=== PATIENT | female | born 1980 | race Caucasian/White ===

== ENCOUNTER 2017-05-24 22:48 | Inpatient (IN) | payer MEDICAID ==
[~2017-05-24] VITALS: Ht 147.3 cm; Wt 62.3 kg
[~2017-05-24 22:48] MED LIST: DOCU1CAP39 PO; IBUP800T23 PO
[2017-05-24 22:57] VITALS: BP 159/80; PULSE 98; RESP 20; TEMP 98.1; O2SAT 98
[2017-05-24] MEDS ORDERED: ONDANSETRON ODT 4 MG TAB PO ONE (23:15)
[2017-05-24] MEDS ORDERED: MORPHINE SULFATE 4 MG/ML INJ IM ONE (23:15)
--- NOTE | 2017-05-24 23:15 | PD ---
HPI Chief Complaint: Musculoskeletal Complaint Time Seen by Provider: 23:13 Travel History International Travel<30 days: No Contact w/Intl Traveler<30days: No Traveled to known affect area: No History of Present Illness HPI 36-year-old female not months presents to emergency department for evaluation of a slip and fall. The patient injured her left knee in the fall. She allegedly had slipped backwards on the wet floor in the kitchen bending her left leg underneath her. She denies any back pain. No head or neck injury. No abdominal pain. No contractions. No leakage of fluid or vaginal bleeding. Patient states the pain is severe. She is unable to ambulate due to pain. [facility] Past Medical History Medical History: Denies Significant Hx Immunizations Current: Yes Tetanus Vaccination: < 5 Years Influenza Vaccination: No ?: Past Surgical History Surgical History: No Previous Surgery Social History Alcohol Use: No Tobacco Use: No Substance Use: No Allergies-Medications (Allergen,Severity, Reaction): Coded Allergies: No Known Allergies (Unverified , 04/22/13) Reported Meds & Prescriptions Reported Meds & Active Scripts Active Reported Ferrous Sulfate 325 Mg (65 Mg Iron) Tablet 325 Mg PO DAILY Review of Systems Except as stated in HPI: all other systems reviewed are Neg Physical Exam Narrative GENERAL: Well-developed, well-nourished in mild distress secondary to pain. Nontoxic appearing. HEAD: Normocephalic, atraumatic. EYES: Pupils equal round and reactive. Extraocular motions intact. No scleral icterus. No injection or drainage. ENT: Nose clear. Throat without erythema, tonsillar hypertrophy or exudate. Uvula midline. Airway patent. NECK: Trachea midline. Supple, nontender, moves head freely. No central bony tenderness or spasm. CARDIOVASCULAR: Regular rate and rhythm without murmurs, gallops, or rubs. RESPIRATORY: Clear to auscultation. Breath sounds equal bilaterally. No wheezes , rales, or rhonchi. GASTROINTESTINAL: Abdomen soft, non-tender, gravid. No guarding. EXTREMITIES: No clubbing, cyanosis. Examination of the left lower extremity reveals a joint effusion in the knee. She complains of severe pain diffusely in the knee with just always swollen amount of movement. Unable to assess ligament stability due to pain. No pain in the hip, ankle, foot. She has intact sensation with good distal pulses. The right lower extremity as well as upper extremities are unremarkable for acute bony tenderness or deformity. BACK: Nontender without deformity. No flank tenderness. NEUROLOGICAL: Awake, alert and oriented x 3 .Cranial nerves grossly intact. Motor and sensory grossly within normal limits. Normal speech. Data Data Last Documented VS Vital Signs Date Time Temp Pulse Resp B/P (MAP) Pulse Ox O2 Delivery O2 Flow Rate FiO2 05/24/17 23:36 20 05/24/17 22:57 98.1 98 159/80 (106) 98 Room Air Orders Orders Knee, Complete (4vws) (05/24/17 23:08) Ice/Cold Pack (05/24/17 23:08) Morphine Inj (Morphine Inj) (05/24/17 23:15) Ondansetron Odt (Zofran Odt) (05/24/17 23:15) [facility] Medical Decision Making Medical Screen Exam Complete: Yes Emergency Medical Condition: Yes Medical Record Reviewed: Yes Interpretation(s) Last 24 hours Impressions Knee X-Ray 05/24/17 [id number] Signed Impressions: Service Date/Time: Wednesday, May 24, 2017 23:22 - CONCLUSION: 1. Abnormal sclerosis and bony destruction in the proximal tibia with soft tissue mass and possible pathologic fracture. Differential diagnosis includes osteosarcoma and chronic low grade infection with pathologic fracture. Recommend MRI left knee. Findings discussed with Dr. Segundo. Yang Quispe MD Differential Diagnosis MDM: High Differential diagnoses: Fracture, sprain, strain, dislocation, contusion, neurovascular injury Narrative Course Patient's given morphine 4 mg IM and Zofran 4 mg by mouth pain. X-ray of the left knee has been ordered. Icepack applied. Patient's place in a knee immobilizer. The case has been discussed with Dr. Quispe the radiologist. He recommends the patient be admitted and get MRI of the knee with possible biopsy to further delineate the pathological fracture of the proximal tibia. The case has been discussed with Dr. Lucas the OB hospitalist who has agreed to see the patient and admit. He is aware that an MRI of the knee will need to be ordered and consult with orthopedics. Diagnosis Primary Impression: left pathological tibial plateau fracture Additional Impression: Qualified Codes: Z34.90 - Encounter for supervision of normal , unspecified, unspecified trimester Condition: Stable Yang Segundo May 24, 2017 23:15
--- NOTE | 2017-05-24 23:42 | RADRPT ---
EXAM DATE/TIME: 05/24/2017 23:22 [facility] COMPARISON: No previous studies available for comparison. INDICATIONS : Knee pain from injury at work, fell on left knee. MEDICAL HISTORY : None. SURGICAL HISTORY : None. ENCOUNTER: Initial ACUITY: 1 day PAIN SCORE: 0/10 LOCATION: Left knee FINDINGS: There is moth-eaten bone destruction involving the proximal tibia with sclerosis and soft tissue mass . There may be a pathologic fracture through the tibial plateau. There is abnormal widening of the me dial joint. There is a joint effusion. Distal femur are intact. CONCLUSION: 1. Abnormal sclerosis and bony destruction in the proximal tibia with soft tissue mass and possible p athologic fracture. Differential diagnosis includes osteosarcoma and chronic low grade infection with pathologic fracture. Recommend MRI left knee. Findings discussed with Dr. Segundo. Yang Quispe MD on May 24, 2017 at 23:36 Board Certified Radiologist. This report was verified electronically.
[2017-05-24] MEDS ORDERED: FERR325T8 PO (23:49)
[2017-05-25] VITALS (11 sets, daily range): BP systolic 91–123; BP diastolic 50–61; PULSE 82–110; RESP 16–18; TEMP 97.6–98.8
[2017-05-25] MEDS ORDERED: cefTRIAXone INJ 1,000 MG in SODIUM CHLORIDE 0.9% INJ 100 ML IV SCH (01:00)
[2017-05-25] MEDS ORDERED: ONDANSETRON HCL 4 MG/2 ML VIAL IV PRN (01:15)
[2017-05-25] MEDS ORDERED: ACETAMINOPHEN 325 MG TAB PO PRN (01:15)
[2017-05-25] MEDS ORDERED: SODIUM CHLORIDE 0.9% FLUSH 10 ML FLUSH IV FLUSH PRN (01:15)
[2017-05-25] MEDS ORDERED: ZOLPIDEM TARTRATE 5 MG TAB PO PRN (01:15)
[2017-05-25] MEDS ORDERED: hydrOXYzine HCL 50 MG TAB PO PRN (01:15)
[2017-05-25] MEDS ORDERED: HYDROmorphone HCL PF 2 MG/ML VIAL IV PUSH PRN (01:15)
--- NOTE | 2017-05-25 01:28 | HHI.HP ---
HPI Chief Complaint Left knee injury from a fall at home Date Seen: May 25, 2017 Time Seen: 01:16 Travel History International Travel<30 Days: No Contact w/Intl Traveler<30Days: No Known Affected Area: No History of Present Illness HPI Patient is 36-year-old G 4P3 approximately 39 - 40 weeks with no care who presents to the emergency room after having fallen at home injuring her left knee. Patient fell backwards with her knee flexed up underneath her. In the emergency room and she was evaluated knee was noted to be markedly swollen and x-ray shows a fracture of the left knee and what appears to be a "moth-eaten" appearance to that the tibia bone superiorly that would go along with pathologic fracture and a lytic bone lesions that could be related to osteosarcoma versus osteomyelitis or some other infectious etiology, the emergency room is recommended to admission and after discussion with radiology MRI and possible biopsy of the tibial head. From obstetric standpoint patient is doing well the baby's heart tones within normal limits is no contractions the baby feels to be term size on Justino maneuvers and we'll plan to get an obstetric ultrasound in the morning Weeks Gestation: 39 Para: 3 : 4 History Past Medical History Narrative Medical Patient's a problem with his left knee for over 6 months she was having pain with that when she states twisted her knee getting off of a boat dock and the knee swelled up and was painful she went to a doctor in [facility], x-rays were done and the doctor told her she needed to go see a specialist about her knee. Her knee began to improve and feel better so she never went to the specialist. She's done nothing about her knee until today when she reinjured it and is now she's here Obstetric History Obstetric History 3 vaginal deliveries Social History Alcohol Use: No Tobacco Use: No Substance Abuse: No Allergies-Medications (Allergen,Severity, Reaction): Coded Allergies: No Known Allergies (Unverified , 04/22/13) Home Meds Reported Medications Ferrous Sulfate (Ferrous Sulfate) 325 Mg (65 Mg Iron) Tablet, 325 MG PO DAILY for Nutritional Supplement, #30 TAB 0 Refills 05/24/17 Discontinued Reported Medications Docusate Sodium (Colace 100 Mg Cap) 100 Mg Cap, 100 MG PO BID for CONSTIPATION, #30 CAP 04/24/13 Ibuprofen (Ibuprofen) 800 Mg Tab, 800 MG PO Q8 for PAIN, #30 TAB 04/24/13 Review of Systems General / Constitutional: No: Fever, Weight Gain, Chills, Other Eyes: No: Diploplia, Blurred Vision, Visual changes, Pain, Photophobia HENT: No: Headaches, Vertigo, Lightheadedness Cardiovascular: No: Irregular Rhythm, Chest Pain or Discomfort, Palpitations, Tachycardia, Syncope, Varicosities, Edema, Cyanosis Respiratory: No: Cough, Short of Breath, Other Gastrointestinal: No: Nausea, Vomiting, Diarrhea Genitourinary: No: Decreased Urinary Output, Oliguria Musculoskeletal: Limited ROM, Edema, Pain, No: Weakness, Cramping Skin: No Rash, No Itching, No Dryness, No Lumps, No Change in Pigmentation, No Change in Nails, No Alopecia, No Lesions Neurologic: No: Weakness, Dizziness, Syncope, Focal Abnormalities, Coordination Problem, Headache, Slurred Speech, Seizures Psychiatric: No: Depression, Suicidal Ideations, Homicidal Ideation Endocrine: No: Heat Intolerance, Cold Intolerance, Polydipsia, Polyuria, Other Physical Exam Vital Signs Date Time Temp Pulse Resp B/P (MAP) Pulse Ox O2 Delivery O2 Flow Rate FiO2 05/24/17 23:36 20 05/24/17 22:57 98.1 98 20 159/80 (106) 98 Room Air Narrative GENERAL: Well-nourished, well-developed patient. SKIN: Warm and dry. Diffuse rash over most of her body small separate darkish lesions that are pruritic HEAD: Normocephalic and atraumatic. EYES: No scleral icterus. No injection or drainage. ENT: No nasal drainage noted. Mucous membranes pink. Airway patent. NECK: Supple, trachea midline. No JVD. CARDIOVASCULAR: Regular rate and rhythm without murmurs, gallops, or rubs. RESPIRATORY: Breath sounds equal bilaterally. No accessory muscle use. BREASTS: Bilateral exam showed no masses , no retractions, no nipple discharge. ABDOMEN/GI: Abdomen soft, non-tender, bowel sounds present, no rebound, no guarding Gravid to [term-] weeks size Fundal Height: [-37] GENITOURINARY: External Genitalia: intact and normal in appearance BUS glands: [-] Cervix: [-] Deferred Presentation: [vtx-] Membranes: [intact ] Uterine Contractions: [none-] FHT's: Category: [1-] Baseline: [-133] Reactive: [-yes] Variability: [mod-] Decels: [-none] EXTREMITIES: No cyanosis , left knee is very swollen very tender no discoloration BACK: Nontender without obvious deformity. No CVA tenderness. NEUROLOGICAL: Awake and alert. Motor and sensory grossly within normal limits. . Normal speech. Caprini VTE Risk Assessment Caprini VTE Risk Assessment: Mod/High Risk (score >= 2) Caprini Risk Assessment Model Point Value = 1 Point Value = 2 Point Value = 3 Point Value = 5 Age 41-60 Minor surgery BMI > 25 kg/m2 Swollen legs Varicose veins or History of unexplained or recurrent spontaneous Oral contraceptives or hormone replacement Sepsis (< 1 month) Serious lung disease, including pneumonia (< 1 month) Abnormal pulmonary function Acute myocardial infarction Congestive heart failure (< 1 month) History of inflammatory bowel disease Medical patient at bed rest Age 61-74 Arthroscopic surgery Major open surgery (> 45 min) Laparoscopic surgery (> 45 min) Malignancy Confined to bed (> 72 hours) Immobilizing plaster cast Central venous access Age >= 75 History of VTE Family history of VTE Factor V Leiden Prothrombin [id number] Lupus anticoagulant Anticardiolipin antibodies Elevated serum homocysteine Heparin-induced thrombocytopenia Other congenital or acquired thrombophilia Stroke (< 1 month) Elective arthroplasty Hip, pelvis, or leg fracture Acute spinal cord injury (< 1 month) Prophylaxis Regimen Total Risk Factor Score Risk Level Prophylaxis Regimen 0-1 Low Early ambulation 2 Moderate Order ONE of the following: *Sequential Compression Device (SCD) *Heparin 5000 units SQ BID 3-4 Higher Order ONE of the following medications: *Heparin 5000 units SQ TID *Enoxaparin/Lovenox 40 mg SQ daily (WT < 150 kg, CrCl > 30 mL/min) *Enoxaparin/Lovenox 30 mg SQ daily (WT < 150 kg, CrCl > 10-29 mL/min) *Enoxaparin/Lovenox 30 mg SQ BID (WT < 150 kg, CrCl > 30 mL/min) AND/OR *Sequential Compression Device (SCD) 5 or more Highest Order ONE of the following medications: *Heparin 5000 units SQ TID (Preferred with Epidurals) *Enoxaparin/Lovenox 40 mg SQ daily (WT < 150 kg, CrCl > 30 mL/min) *Enoxaparin/Lovenox 30 mg SQ daily (WT < 150 kg, CrCl > 10-29 mL/min) *Enoxaparin/Lovenox 30 mg SQ BID (WT < 150 kg, CrCl > 30 mL/min) AND *Sequential Compression Device (SCD) Data Data Orders Orders Knee, Complete (4vws) (05/24/17 23:08) Ice/Cold Pack (05/24/17 23:08) Morphine Inj (Morphine Inj) (05/24/17 23:15) Ondansetron Odt (Zofran Odt) (05/24/17 23:15) Ob Poc Ultrasound (05/25/17 ) Ob (2e) Additional Admit Info (05/25/17 01:02) Admit To Inpatient (05/25/17 ) Diet Regular Basic (05/25/17 Breakfast) Vital Signs (Adult) ILDA.Y2T-ENNDA AWAKE (05/25/17 01:03) Heart ILDA.QSHIFT (05/25/17 01:03) Activity Bed Rest (05/25/17 01:03) Complete Blood Count With Diff (05/25/17 01:03) Urinalysis - C+S If Indicated (05/25/17 01:03) Lactated Ringer's 1000 Ml Inj (Lr 1000 M (05/25/17 01:03) Acetaminophen (Tylenol) (05/25/17 01:15) Sodium Chloride 0.9% Flush (Ns Flush) (05/25/17 09:00) Sodium Chloride 0.9% Flush (Ns Flush) (05/25/17 01:15) Zolpidem (Ambien) (05/25/17 01:15) Ondansetron Inj (Zofran Inj) (05/25/17 01:15) Us Ob Limited (05/25/17 08:00) Ob/Psych Drug Screen, Urine (05/25/17 01:03) Hold Clot (05/25/17 01:03) Consult Perinatology (05/25/17 ) Ceftriaxone Inj (Rocephin Inj) (05/25/17 01:00) Hiv Antibody Screen (05/25/17 01:09) Urinary Catheter Management ILDA.Q8H (05/25/17 01:10) Hydromorphone Pf Inj (Dilaudid Pf Inj) (05/25/17 01:15) Consult Orthopedic (05/25/17 ) Comprehensive Metabolic Panel (05/25/17 01:14) Hydroxyzine Hcl (Atarax) (05/25/17 01:15) Labs see radiology report on left knee Assessment/Plan Assessment and Plan 36-year-old at term with no care approximately 40 weeks gestation the patient relates she's her calculation she's due in mid May however she is not seen OB doctor or had an ultrasound this , she only speaks Malay but her sinus here translates for her. She has a fractured left knee from a fall today and x-ray that needed tonight shows pathologic fracture with moth eaten changes in the tibial head consistent with possible osteosarcoma versus infectious etiology in radiology recommends admission orthopedic consultation MRI possible biopsy of that knee. From an obstetric standpoint she stable plan an ultrasound in the morning and consultation if they're available will draw lab collect GBS Javier Lucas II, MD May 25, 2017 01:28
[2017-05-25] MEDS: LACTATED RINGER'S 1000 ML INJ 1,000 ML IV SCH ×2 (01:56→12:13)
[2017-05-25 01:59] LABS: AUTOMATED NEUTROPHIL # 9.2 TH/MM3 (1.8-7.7); BASOPHIL % 0.2 % (0.0-2.0); EOSINOPHIL % 0.2 % (0.0-4.0); HEMATOCRIT 27.8 % (35.0-46.0); HEMO FLAGS DIFF FINAL; LYMPH % 13.5 % (9.0-44.0); LYMPHOCYTE # 1.5 TH/MM3 (1.0-4.8); MEAN CELL VOLUME 80.3 FL (80.0-100.0); MEAN CORPUSCULAR HEMOGLOBIN 26.3 PG (27.0-34.0); MEAN CORPUSCULAR HGB CONC 32.8 % (32.0-36.0); MONO % 5.6 % (0.0-8.0); NEUT % 80.5 % (16.0-70.0); PLATELET COUNT 463 TH/MM3 (150-450); RED BLOOD COUNT 3.47 MIL/MM3 (4.00-5.30); RED CELL DISTRIBUTION WIDTH 15.4 % (11.6-17.2); WHITE BLOOD COUNT 11.5 TH/MM3 (4.0-11.0)
[2017-05-25 02:18] LABS: ALT (GPT) 12 U/L (10-53); ANION GAP 8 MEQ/L (5-15); AST (GOT) 12 U/L (15-37); BICARBONATE 22.9 MEQ/L (21.0-32.0); CHLORIDE 104 MEQ/L (98-107); GLOMERULAR FILTRATION RATE 138 ML/MIN (>89); POTASSIUM 4.2 MEQ/L (3.5-5.1); SODIUM (NA) 135 MEQ/L (136-145)
[2017-05-25 02:24] LABS: ALKALINE PHOSPHATASE 242 U/L (45-117); BLOOD UREA NITROGEN 7 MG/DL (7-18); TOTAL BILIRUBIN ADULT 0.4 MG/DL (0.2-1.0)
[2017-05-25 02:47] LABS: BACTERIA, URINE MOD /hpf; BLOOD, URINE TRACE (NEG); COMMENT (UR) CATH-CULTURE IND; CULTURE IF INDICATED CATH CULTURE IND; GLUCOSE,URINE NEG (NEG); KETONE, URINE 10 mg/dL (NEG); MUCUS URINE FEW /lpf (OCC); NITRITE,URINE POS (NEG); RENAL EPITHELIAL CELLS <1 /hpf; SQUAMOUS EPITHELIAL CELL URINE 5 /hpf (0-5); URINE COLOR YELLOW (YELLW/STRAW)
[2017-05-25 06:02] LABS: RUBELLA IGG ANTIBODY 37.5 IU/mL (10.0-500.0); RUBELLA STATUS IMMUNE (IMMUNE)
[2017-05-25] MEDS ORDERED: SODIUM CHLORIDE 0.9% FLUSH 10 ML FLUSH IV FLUSH SCH (09:00)
--- NOTE | 2017-05-25 10:33 | RADRPT ---
EXAM DATE/TIME: 05/25/2017 09:21 [facility] COMPARISON: No previous studies available for comparison. INDICATIONS : Trauma. Pain and swelling left knee. MEDICAL HISTORY : . SURGICAL HISTORY : None. ENCOUNTER: Initial ACUITY: 4-6 months PAIN SCORE: 9/10 LOCATION: Left knee TECHNIQUE: Multiplanar, multisequence MRI examination was performed without contrast. The patient is 39 weeks pr egnant and MRI contrast would not have aided a definitive diagnosis. FINDINGS: There is complete marrow replacement involving the proximal tibia. It is a mixed signal intensity les ion with some areas of lower signal suggesting sclerosis however there is complete loss of the normal marrow fat. There is clinical destruction along the lateral tibial metaphysis and involving the ent conor tibial spine. It involves through the epiphysis and the tibial tuberosity and an expansile destr uctive pattern. There is some surrounding soft tissue particularly anteriorly. The popliteus muscle posterior to the tibia is expanded and very edematous. The majority of the corti johana breakthrough is in the anterior and lateral components but there is obvious concern for popliteus muscular involvement CRUCIATE LIGAMENTS: ACL and PCL are intact. MENISCI: Medial and lateral menisci are intact. COLLATERAL LIGAMENTS: MCL and LCL complexes are intact. BONE/CARTILAGE: Articular cartilage signal is within normal limits. MISCELLANEOUS: Moderate joint effusion with some debris in the suprapatellar bursa. The patella tendon is anteriorly displaced due to expansile lesion within the tibial tuberosity. CONCLUSION: Aggressive appearing lesion in the proximal tibia with diffuse marrow replacement and bony cortical d isruption. Extends and anteriorly displaces the tibial tuberosity with multiple areas of progressive tumor growth pattern. Osteosarcoma is the primary consideration. Dedifferentiated chondrosarcoma als o should be considered. Misha Flores MD on May 25, 2017 at 10:18 Board Certified Radiologist. This report was verified electronically.
--- NOTE | 2017-05-25 10:40 | RADRPT ---
EXAM DATE/TIME: 05/25/2017 09:21 [facility] COMPARISON: No previous studies available for comparison. INDICATIONS : Edema. Swelling and pain left knee. MEDICAL HISTORY : . SURGICAL HISTORY : None. ENCOUNTER: Initial ACUITY: 4-6 months PAIN SCORE: 9/10 LOCATION: Left knee TECHNIQUE: Multiplanar multisequence MRI examination of the lower leg was performed without contrast. FINDINGS: BONE/CARTILAGE: Proximal 7.4 cm of the tibial marrow has been completely replaced. There is breakthrough involving th e lateral tibial metaphysis and anterior cortex involving the tibial spine. MUSCLES/TENDONS: There is extensive soft tissue involvement surrounding the metaphysis. There is abnormal signal with in the tibialis anterior muscle, the flexor hallucis longus muscle and the popliteus muscle. MISCELLANEOUS: Neurovascular structures are within normal limits. Moderate joint effusion CONCLUSION: Aggressive marrow replacing lesion of the proximal 7.4 cm of the tibia. There is cortical breakthroug h anteriorly and laterally with extensive surrounding soft tissue edema including at least involvemen t of 3 muscular groups. Osteosarcoma is a primary consideration. There is tumor involvement of the ti bial tuberosity and the patellar tendon insertion. Misha Flores MD on May 25, 2017 at 10:36 Board Certified Radiologist. This report was verified electronically.
--- NOTE | 2017-05-25 15:53 | MB ---
cc: NOEL QUIROZ DATE OF CONSULTATION 05/25/2017 REASON FOR CONSULTATION Left knee proximal tibia pathologic fracture. HISTORY The patient is a 36-year-old female who is approximately 39-40 weeks who apparently had no care and had an injury to the left knee about six months ago. She twisted her knee getting off of a boat dock, the knee swelled, became painful. She says she saw a physician in [place], x-rays were taken and according to the notes in the chart, it says that the patient was told she needs to go see a specialist about her knee, although the patient told me that she had a fracture. Note that history was obtained from both reviewing the chart and also talking to the patient with a preschool director who was from the family. The patient apparently says the knee started to feel better and she did not see a specialist. She has worsening pain about the left knee. She presented to the emergency room. She had swelling about the knee. X-rays were taken showing a moth-eaten appearance to the proximal tibia. The patient was admitted to the hospital. After I reviewed the x-rays. I ordered a stat MRI of the proximal tibia and of the knee which had just been completed. The patient denies any history of cancer. She denies any pain in any other body areas other than typical pain from a . PAST MEDICAL HISTORY As above. SOCIAL HISTORY The patient does not smoke or drink alcohol. ALLERGIES See the chart. FAMILY HISTORY Noncontributory. REVIEW OF SYSTEMS Total review of systems is negative except as noted in the history of present illness. PHYSICAL EXAMINATION The patient's temperature is 97.6, pulse is 100, respirations 16, blood pressure 103/60. She is awake, alert and oriented x3. She has normal insight, affect and judgment. She is Danish-speaking and we discussed her case with a preschool director. The patient appears to be well-nourished in no acute distress. HEAD: Atraumatic. NECK: Supple. Oropharynx is moist. EYES, EARS, NOSE AND THROAT: Extraocular muscles are intact. BACK: The back shows no CVA tenderness. She still has evidence of . EXTREMITIES: Examination of the left knee, canvas knee splint that was applied was removed. She has quite a bit of swelling in the proximal tibia. Skin is intact with no fungating changes to the skin. There is no skin breakdown. There appears to be a large joint effusion versus a mass in the suprapatellar pouch. The knee has very limited range of motion. There appears to be normal alignment. There is no instability to varus/valgus stress testing. I did not appreciate a mass down by the lower portion of the tibia. The patient does not have lymphadenopathy noted up by the groin region, although it was difficult to tell given the . She moves the toes well and she has 2+ dorsalis pedis pulse in the left foot. LABORATORY STUDIES Reviewed and shows a white cell count of 11.5, hematocrit 27.8, platelets of 467. Chemistries creatinine is 0.51. IMAGING STUDIES At the time that I spoke to the patient, I had just reviewed the x-rays. I reviewed the MRI after talking to the patient. I did review the images and the reports for both. I agree with interpretation showing essentially significant moth-eaten mixed with sclerotic changes about the proximal tibia which on the lateral view appears to extend out anterior to the tibial tubercle. I do not see changes in the distal femur or the patella. The changes encompassed the diaphysis and are diffuse and non-sclerotic in nature. 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 DECISION-MAKING This is a very complicated situation for this patient. 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 Typically, I would recommend a full workup such as CT of the chest, abdomen and pelvis along with whole body bone scan to look for further characteristics if there are metastasis and also look for any other source of primary cancer. However, given her clinical situation, I feel that a primary bone cancer is very likely given the fact that it is broken through the bone this becomes a very complicated situation. I do not recommend a biopsy of this by the undersigned or by invasive radiology. Typically this type of problem should be biopsied by a physician who is prepared to do full treatment for this problem. Besides her needing further workup as described above may require surgical management such as limb salvage reconstruction if possible or even potentially amputation which could be [id number] given the fact that there may be some tumor cells within the suprapatellar pouch as well. This could be a limb threatening and life-threatening situation for the patient. This is much more complicated due to the fact that she is late term in her . We did talk to the physician taking care of this patient. They are going to be talking to maternal medicine physicians to try to date the at this point. I generally recommend transfer to another facility such as [facility] in [place] to have an end user support specialist in oncology to evaluated and manage the patient. We will need to see if we can get in touch with them to see if they want to us to do any of the other radiologic work up here as described above or if there is something that they may want to defer to have done at their own institution. Further management of this is still being developed and will be discussed with the patient. MD LEANDER Frey/BREN /10:57 AM /3:30 PM
--- NOTE | 2017-05-25 16:08 | PD.OB.ANTE ---
Subjective Diagnosis: (1) 38 weeks gestation of (2) with orthopedic problem (3) Insufficient care in third trimester Interval History Patient reports good movement. Denies contractions/LOF/VB. Reports pain in knee unchanged. Objective Vital Signs Vital Signs Date Time Temp Pulse Resp B/P (MAP) Pulse Ox O2 Delivery O2 Flow Rate FiO2 05/25/17 12:09 98.6 05/25/17 12:09 16 05/25/17 12:08 85 123/61 (81) 05/25/17 07:39 100 103/60 (74) 05/25/17 07:39 98.0 16 05/25/17 06:00 97.6 16 05/25/17 05:58 96 109/59 (76) 05/25/17 05:56 86 91/50 (64) 05/25/17 04:08 18 05/25/17 03:00 16 05/25/17 02:38 82 108/59 (75) 05/25/17 00:30 18 05/24/17 23:36 20 05/24/17 22:57 98.1 98 20 159/80 (106) 98 Room Air Lab & Micro Results Test 05/25/17 01:30 05/25/17 02:20 White Blood Count 11.5 TH/MM3 Red Blood Count 3.47 MIL/MM3 Hemoglobin 9.1 GM/DL Hematocrit 27.8 % Mean Corpuscular Volume 80.3 FL Mean Corpuscular Hemoglobin 26.3 PG Mean Corpuscular Hemoglobin Concent 32.8 % Red Cell Distribution Width 15.4 % Platelet Count 463 TH/MM3 Mean Platelet Volume 7.8 FL Neutrophils (%) (Auto) 80.5 % Lymphocytes (%) (Auto) 13.5 % Monocytes (%) (Auto) 5.6 % Eosinophils (%) (Auto) 0.2 % Basophils (%) (Auto) 0.2 % Neutrophils # (Auto) 9.2 TH/MM3 Lymphocytes # (Auto) 1.5 TH/MM3 Monocytes # (Auto) 0.6 TH/MM3 Eosinophils # (Auto) 0.0 TH/MM3 Basophils # (Auto) 0.0 TH/MM3 CBC Comment DIFF FINAL Differential Comment Urine Color YELLOW Urine Turbidity HAZY Urine pH 6.0 Urine Specific [place] 1.017 Urine Protein 30 mg/dL Urine Glucose (UA) NEG mg/dL Urine Ketones 10 mg/dL Urine Occult Blood TRACE Urine Nitrite POS Urine Bilirubin NEG Urine Urobilinogen 2.0 MG/DL Urine Leukocyte Esterase LARGE Urine RBC 4 /hpf Urine WBC 8 /hpf Urine Squamous Epithelial Cells 5 /hpf Urine Renal Epithelial Cells <1 /hpf Urine Amorphous Sediment RARE Urine Bacteria MOD /hpf Urine Mucus FEW /lpf Microscopic Urinalysis Comment CATH-CULTURE IND Blood Urea Nitrogen 7 MG/DL Creatinine 0.51 MG/DL Random Glucose 98 MG/DL Total Protein 7.3 GM/DL Albumin 2.2 GM/DL Calcium Level 8.3 MG/DL Alkaline Phosphatase 242 U/L Aspartate Amino Transf (AST/SGOT) 12 U/L Alanine Aminotransferase (ALT/SGPT) 12 U/L Total Bilirubin 0.4 MG/DL Sodium Level 135 MEQ/L Potassium Level 4.2 MEQ/L Chloride Level 104 MEQ/L Carbon Dioxide Level 22.9 MEQ/L Anion Gap 8 MEQ/L Estimat Glomerular Filtration Rate 138 ML/MIN Urine Opiates Screen POS Urine Barbiturates Screen NEG Urine Amphetamines Screen NEG Urine Benzodiazepines Screen NEG Urine Cocaine Screen NEG Urine Cannabinoids Screen NEG Rapid Plasma Reagin NON-REACTIVE Rubella Immunity Screen IMMUNE Rubella Antibody, Quantitative 37.5 IU/mL Date/Time Source Procedure Growth Status 05/25/17 02:20 Genital Genital Region Group B Streptococcus Screen Pending Received 05/25/17 01:30 Urine Catheterized Urine Urine Culture Pending Received Physical Exam GENERAL: Well-nourished, well-developed patient. CARDIOVASCULAR: Regular rate and rhythm without murmurs, gallops, or rubs. RESPIRATORY: Breath sounds equal bilaterally. No accessory muscle use. ABDOMEN/GI: Abdomen soft, non-tender. Fundus: [-] GENITOURINARY: External Genitalia: intact and normal in appearance Cervix: [-] Dilatation: [-] Effacement: [-] Station: [-] Presentation: [-] Membranes: [-] Uterine Contractions: [no contractions] FHT's: Category: [1] Baseline: [150s] Reactive: [yes] Variability: [moderate] Decels: [none] EXTREMITIES: No cyanosis or edema, non-tender, without signs of DVT. Assessment and Plan Assessment and Plan at 38w 6d, no care, admitted after fall and now with concerns for orthopedic carcinoma. Per discussion with Dr. Mak, orthopedics and Dr. Corbett, [facility] patient will be transferred to [facility] in [place] for continued orthopedic evaluation and work up. OB care to be assumed by Dr. Cuate Palomares. Plan d/w with patient via translation services. R/B/A reviewed, all questions answered. D/w patient that questions regarding assessment/plan for orthopedic problems to be directed to Dr. Mak. Patient stated understanding. Kathy Amado MD May 25, 2017 16:08
--- NOTE | 2017-05-29 21:48 | MD ---
cc: MARK JIMÉNEZ MD ADMISSION DATE: 05/25/2017 DISCHARGE DATE: 05/25/2017 DATE OF 1980 HISTORY This is a 36-year-old 4, para 3 Portuguese speaking only patient who presented to the emergency room status post a fall at home injuring her left knee. The patient has had no care thus far in this . In the emergency department the patient was evaluated and per x-rays shown to have a fracture of the left knee with concerns for osteosarcoma versus osteomyelitis or another infectious etiology. Orthopedics consultation was obtained with Dr. Adrián Mak who ordered an MRI of the knee which showed sclerotic changes, moth eaten appearance with attention to the tibial tubercle. After discussion with Dr. Mak he was concerned for a primary bone sarcoma based on the imaging. He recommended further evaluation and workup including biopsy to be performed at another facility. The patient had an obstetrical ultrasound per KORI which agreed with an JUANA that the patient stated,which dated her at 38 weeks and 6 days. Patient status was discussed with Dr. Corbett, regarding recommendations for transfer to have further orthopedic evaluation and care. Recommendations are for the patient to be delivered at that same facility. Recommendations for transfer were discussed with the patient via translation services. Explained to patient that Dr. Mak would discuss any other questions regarding orthopedic issues. Arrangements were made for the patient to be transferred to [facility] in [place] with orthopedic care to be assumed by Dr. Pope and obstetrical care to be assumed by Dr. Palomares. All information was relayed to the patient via translation services and the patient stated understanding that she would be transferred to [facility] in [place] and care would be continued there. Mark Jiménez MD JR/KK /4:26 PM /9:22 PM [facility]in[facility]
[2017-05-30 13:14] LABS: BATH SALTS (MDPV) UR NEG (NEG); ECSTASY (MDMA) UR NEG (NEG); GABAPENTIN UR NEG (NEG); HEROIN (6-ACETYLMORPHINE) UR NEG (NEG); K2 SPICE UR NEG (NEG); OBMETHADONE UR NEG (NEG); PHENCYCLIDINE URINE NEG (NEG)
[2017-05-30 13:16] LABS: HYDROMORPHONE U POS (NEG)
== END 2017-05-25 19:05 | disposition short-term general hospital (02) | DRG 781 ==
LOC: HOBED 22:48 → H2EA 05-25 01:02 → OBSVTOIN 05-25 01:09
PROVIDERS: ADMIT Obstetrics & Gynecology Maternal & Fetal Medicine; ATTEND Obstetrics & Gynecology Maternal & Fetal Medicine
PROC: 0T9B70Z Drainage of Bladder with Drainage Device, Via Natural or Artificial Opening (ICD-10-PCS; principal; 2017-05-25)
DX: O9A.113 Malignant neoplasm complicating pregnancy, third trimester (principal); C40.22 Malignant neoplasm of long bones of left lower limb; M84.462A Pathological fracture, left tibia, initial encounter for fracture; O09.33 Supervision of pregnancy with insufficient antenatal care, third trimester; W01.0XXA Fall on same level from slipping, tripping and stumbling without subsequent striking against object, initial encounter; Y92.009 Unspecified place in unspecified non-institutional (private) residence as the place of occurrence of the external cause; Z3A.39 39 weeks gestation of pregnancy
CPT/HCPCS: 73564; 73718; 73721; 76805; 80053; 80074; 80307; 81001; 85025; 86592; 86762; 86900; 86901; 87077; 87081; 87086; 87150; 87186; 87389; 96372; A0431-QM-HH; A0436-QM-HH; G0481; J0696; J1170; J2270; J7120

== ENCOUNTER 2017-08-04 10:01 | Emergency (ER) | payer MEDICAID ==
[~2017-08-04] VITALS: Ht 149.9 cm; Wt 60.0 kg
[~2017-08-04 10:01] MED LIST changes: -DOCU1CAP39 PO; +FERR325T18 PO; -IBUP800T23 PO
[2017-08-04 10:03] VITALS: BP 130/75; PULSE 122; RESP 22; TEMP 100.2; O2SAT 99
[2017-08-04] MEDS ORDERED: PROC10TA PO (10:21)
[2017-08-04] MEDS ORDERED: DEXA4TAB PO (10:21)
[2017-08-04] MEDS ORDERED: ZOFR8TAB PO (10:21)
[2017-08-04 10:22] VITALS: BP 139/79; PULSE 107; RESP 16; TEMP 99.8; O2SAT 98
[2017-08-04] MEDS ORDERED: SODIUM CHLOR 0.9% 1000 ML INJ 800 ML IV ONE (10:23)
[2017-08-04] MEDS ORDERED: SODIUM CHLOR 0.9% 1000 ML INJ 1,000 ML IV ONE (10:23)
--- NOTE | 2017-08-04 10:29 | PD ---
HPI . Fever Chief Complaint: Fever Time Seen by Provider: 10:23 Travel History International Travel<30 days: No Contact w/Intl Traveler<30days: No Traveled to known affect area: No History of Present Illness HPI This is a Khmer-speaking only patient who presents to us today for fever. History is obtained using her son as insurance professional. Onset of fever was today. Maximum temperature is 101.9. She has had some very mild rhinorrhea and a mild cough. Otherwise, no obvious etiology for the fever. 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 This was diagnosed when she suffered a pathological fracture of her left knee. She was seen here at that time but was subsequently transferred to [facility] for both delivery and for treatment of the newly diagnosed osteosarcoma. She is only obtaining chemotherapy. She has not had surgery. Her last chemotherapy was July 25 and . PFSH Past Medical History Implanted Vascular Access Dvce: Yes Immunizations Current: Yes ?: Not Past Surgical History Other Surgery: Yes (LEFT KNEE BIOPSY, RIGHT CHEST PORT) Social History Alcohol Use: No Tobacco Use: No Substance Use: No Allergies-Medications (Allergen,Severity, Reaction): Coded Allergies: No Known Allergies (Unverified , 04/22/13) Reported Meds & Prescriptions Reported Meds & Active Scripts Active Reported Prochlorperazine Maleate 10 Mg Tab 10 Mg PO Q6H PRN Zofran (Ondansetron HCl) 8 Mg Tab 8 Mg PO TID PRN Dexamethasone 4 Mg Tab 8 Mg PO DIRECTED Review of Systems Except as stated in HPI: all other systems reviewed are Neg General / Constitutional: Positive: Fever HENT: Positive: Rhinorrhea Respiratory: Positive: Cough Gastrointestinal: No: Nausea, Vomiting, Diarrhea, Abdominal Pain Genitourinary: No: Urgency, Frequency, Dysuria Skin: No Rash, No Change in Pigmentation, No Lesions Physical Exam Narrative GENERAL: Awake and alert and in no acute distress. SKIN: warm/dry. HEAD: Normocephalic. EYES: Pupils equal and round. No scleral icterus. No injection or drainage. ENT: No nasal bleeding or discharge. Mucous membranes pink and moist. NECK: Trachea midline. Full range of motion without pain. No cervical lymphadenopathy. CARDIOVASCULAR: Sinus tachycardia. Heart sounds are normal. RESPIRATORY: No accessory muscle use. Clear to auscultation. Breath sounds equal bilaterally. GASTROINTESTINAL: Abdomen soft. Nontender. Bowel sounds present. Nondistended. MUSCULOSKELETAL: No obvious deformities. NEUROLOGICAL: Awake and alert. No obvious cranial nerve deficits. Motor grossly within normal limits. Normal speech. PSYCHIATRIC: Appropriate mood and affect; insight and judgment normal. Data Data Last Documented VS Vital Signs Date Time Temp Pulse Resp B/P (MAP) Pulse Ox O2 Delivery O2 Flow Rate FiO2 08/04/17 12:12 99.3 08/04/17 11:00 90 17 99 Room Air Orders Orders Sepsis Workup Initiated (08/04/17 ) Complete Blood Count With Diff (08/04/17 10:23) Comprehensive Metabolic Panel (08/04/17 10:23) Lactic Acid Sepsis Protocol (08/04/17 10:23) Urinalysis - C+S If Indicated (08/04/17 10:23) Influenzae A/B Antigen (08/04/17 10:23) Blood Culture (08/04/17 10:23) Chest, Single Ap (08/04/17 10:23) Ecg Monitoring (08/04/17 10:23) Iv Access Insert/Monitor (08/04/17 10:23) Oximetry (08/04/17 10:23) Acetaminophen (Tylenol) (08/04/17 10:30) Sodium Chlor 0.9% 1000 Ml Inj (Ns 1000 M (08/04/17 10:23) Sodium Chlor 0.9% 1000 Ml Inj (Ns 1000 M (08/04/17 10:23) Urine Culture (08/04/17 11:38) Cefepime Inj (Maxipime Inj) (08/04/17 12:30) Labs Laboratory Tests Test 08/04/17 10:36 08/04/17 11:38 White Blood Count 2.3 TH/MM3 Red Blood Count 3.59 MIL/MM3 Hemoglobin 10.0 GM/DL Hematocrit 28.7 % Mean Corpuscular Volume 80.1 FL Mean Corpuscular Hemoglobin 27.9 PG Mean Corpuscular Hemoglobin Concent 34.8 % Red Cell Distribution Width 19.2 % Platelet Count 174 TH/MM3 Mean Platelet Volume 8.8 FL CBC Comment AUTO DIFF Differential Total Cells Counted 100 Neutrophils % (Manual) 8 % Band Neutrophils % 1 % Lymphocytes % 81 % Monocytes % 9 % Eosinophils % 1 % Neutrophils # (Manual) 0.2 TH/MM3 Differential Comment FINAL DIFF MANUAL Platelet Estimate NORMAL Platelet Morphology Comment NORMAL Blood Urea Nitrogen 11 MG/DL Creatinine 0.69 MG/DL Random Glucose 117 MG/DL Total Protein 8.1 GM/DL Albumin 2.9 GM/DL Calcium Level 8.3 MG/DL Alkaline Phosphatase 206 U/L Aspartate Amino Transf (AST/SGOT) 58 U/L Alanine Aminotransferase (ALT/SGPT) 129 U/L Total Bilirubin 0.5 MG/DL Sodium Level 130 MEQ/L Potassium Level 4.0 MEQ/L Chloride Level 98 MEQ/L Carbon Dioxide Level 23.5 MEQ/L Anion Gap 9 MEQ/L Estimat Glomerular Filtration Rate 97 ML/MIN Lactic Acid Level 1.5 mmol/L Urine Color LIGHT-YELLOW Urine Turbidity CLEAR Urine pH 7.0 Urine Specific [place] 1.003 Urine Protein NEG mg/dL Urine Glucose (UA) NEG mg/dL Urine Ketones NEG mg/dL Urine Occult Blood NEG Urine Nitrite NEG Urine Bilirubin NEG Urine Urobilinogen LESS THAN 2.0 MG/DL Urine Leukocyte Esterase NEG Urine RBC LESS THAN 1 /hpf Urine WBC 1 /hpf Urine Bacteria MOD /hpf Microscopic Urinalysis Comment CATH-CULTURE IND MDM Medical Decision Making Medical Screen Exam Complete: Yes Emergency Medical Condition: Yes Medical Record Reviewed: Yes (please see the HPI for the review of records.) Differential Diagnosis Differential diagnosis of fever includes but is not limited to viral illness, strep throat, otitis media, pneumonia, sepsis, UTI Narrative Course This is a patient on chemotherapy who presents to us for fever. Septic workup has been initiated. I have ordered IV fluids and Tylenol. Antibiotics have not yet been ordered. Last Impressions Chest X-Ray 08/04/17 1023 Signed Impressions: Service Date/Time: July 10:40 - CONCLUSION: No infiltrates seen. Justin Coleman MD flu screen neg. LA 1.5 CBC & BMP Diagram 08/04/17 10:36 Total Protein 8.1, Albumin 2.9 L, Calcium Level 8.3 L, Alkaline Phosphatase 206 H, Aspartate Amino Transf (AST/SGOT) 58 H, Alanine Aminotransferase (ALT/SGPT) 129 H, Total Bilirubin 0.5 ANC 0.2 UA has moderate bacteria but no other evidence of infection. Cefepime 2 g IV has been ordered empirically. Critical Care Narrative Aggregate critical care time was 45 minutes. Time to perform other separately billable procedures was not included in the critical care time. My time did not include minutes spent treating any other patients simultaneously or on activities that did not directly contribute to the patient's treatment. The services I provided to this patient were to treat and/or prevent clinically significant deterioration due to fever in a chemotherapy patient I provided critical care services requiring my management, as noted below: Chart data review, documentation time, medication orders and management, vital sign assessments/reviewing monitor data, ordering and reviewing lab tests, ordering and interpreting/reviewing x-rays and diagnostic studies, care of the patient and discussion of the patient with the admitting physicians Sepsis Criteria SIRS Criteria (2 or more): Heart rate over 90, RR > 20 or PaCO2 < 32, WBC > 82528, < 4000 or > 10% bands Criteria Outcome: Meets SIRS criteria Physician Communication Physician Communication Dr. Soares at [facility] in [place] has accepted the patient in transfer. Diagnosis Primary Impression: Neutropenic fever Additional Impression: SIRS (systemic inflammatory response syndrome) Disposition: 70 TRANSFER TO OTHER FACILITY Condition: Stable Shima Hunt MD Aug 04, 2017 10:29
[2017-08-04] MEDS ORDERED: ACETAMINOPHEN 325 MG TAB PO ONE (10:30)
--- NOTE | 2017-08-04 10:57 | RADRPT ---
EXAM DATE/TIME: 08/04/2017 10:40 [facility] COMPARISON: No previous studies available for comparison. INDICATIONS : Fever started this morning. MEDICAL HISTORY : Osteosarcoma. SURGICAL HISTORY : Port. ENCOUNTER: Initial ACUITY: 1 day PAIN SCORE: 0/10 LOCATION: Bilateral chest FINDINGS: A single view of the chest demonstrates the lungs to be symmetrically aerated without evidence of mas s, infiltrate or effusion. The cardiomediastinal contours are unremarkable. Osseous structures are intact. Right central line tip in the mid superior vena cava. CONCLUSION: No infiltrates seen. Justin Coleman MD on August 04, 2017 at 10:54 Board Certified Radiologist. This report was verified electronically.
[2017-08-04 11:00] VITALS: BP 112/69; PULSE 90; RESP 17; O2SAT 99
[2017-08-04 11:16] LABS: HEMATOCRIT 28.7 % (35.0-46.0); MEAN CELL VOLUME 80.1 FL (80.0-100.0); MEAN CORPUSCULAR HEMOGLOBIN 27.9 PG (27.0-34.0); MEAN CORPUSCULAR HGB CONC 34.8 % (32.0-36.0); PLATELET COUNT 174 TH/MM3 (150-450); RED BLOOD COUNT 3.59 MIL/MM3 (4.00-5.30); RED CELL DISTRIBUTION WIDTH 19.2 % (11.6-17.2); WHITE BLOOD COUNT 2.3 TH/MM3 (4.0-11.0)
[2017-08-04 11:26] LABS: ALT (GPT) 129 U/L (10-53)
[2017-08-04 11:28] LABS: ALKALINE PHOSPHATASE 206 U/L (45-117); TOTAL BILIRUBIN ADULT 0.5 MG/DL (0.2-1.0)
[2017-08-04 11:29] LABS: ANION GAP 9 MEQ/L (5-15); AST (GOT) 58 U/L (15-37); BICARBONATE 23.5 MEQ/L (21.0-32.0); BLOOD UREA NITROGEN 11 MG/DL (7-18); CHLORIDE 98 MEQ/L (98-107); GLOMERULAR FILTRATION RATE 97 ML/MIN (>89); SODIUM (NA) 130 MEQ/L (136-145)
[2017-08-04 11:50] LABS: HEMO FLAGS AUTO DIFF
[2017-08-04 11:55] LABS: BANDS 1 % (0-6); EOSINOPHILS 1 % (0-4); POLYS (SEG NEUTROPHILS) 8 % (16-70); WBC DIFF SAMPLE 100
[2017-08-04 11:59] LABS: NEUTROPHIL # MANUAL DIFF 0.2 TH/MM3 (1.8-7.7); PLATELET ESTIMATE SMEAR NORMAL (NORMAL); PLATELET MORPHOLOGY NORMAL (NORMAL); SCAN/DIFF FINAL DIFF MANUAL
[2017-08-04 12:12] VITALS: TEMP 99.3
[2017-08-04 12:15] LABS: BACTERIA, URINE MOD /hpf; BLOOD, URINE NEG (NEG); COMMENT (UR) CATH-CULTURE IND; CULTURE IF INDICATED CATH CULTURE IND; GLUCOSE,URINE NEG (NEG); KETONE, URINE NEG (NEG); NITRITE,URINE NEG (NEG); URINE COLOR LIGHT-YELLOW (YELLW/STRAW)
[2017-08-04] MEDS ORDERED: CEFEPIME INJ 2,000 MG in SODIUM CHLORIDE 0.9% INJ 100 ML IV ONE (12:30)
[2017-08-04 14:07] VITALS: BP 120/74; PULSE 85; RESP 23; TEMP 98.6; O2SAT 100
== END 2017-08-04 14:15 | disposition short-term general hospital (02) ==
LOC: NEPE 10:01
DX: D70.9 Neutropenia, unspecified (principal); R50.81 Fever presenting with conditions classified elsewhere; R65.10 Systemic inflammatory response syndrome (SIRS) of non-infectious origin without acute organ dysfunction; B96.20 Unspecified Escherichia coli [E. coli] as the cause of diseases classified elsewhere; Z79.899 Other long term (current) drug therapy
CPT/HCPCS: 71010; 80053; 81001; 83605; 85007; 85027; 87040; 87077; 87086; 87186; 87804; 96361; 96365; 99291; J0692; J7030

== ENCOUNTER 2017-08-08 18:49 | Emergency (ER) | payer MEDICAID ==
[~2017-08-08] VITALS: Ht 149.9 cm; Wt 58.5 kg
[~2017-08-08 18:49] MED LIST changes: +DEXA4TAB PO; -FERR325T18 PO; +PROC10TA PO; +ZOFR8TAB PO
[2017-08-08 18:51] VITALS: BP 132/72; PULSE 94; RESP 12; TEMP 100.4; O2SAT 98
[2017-08-08 19:58] LABS: AUTOMATED NEUTROPHIL # 6.1 TH/MM3 (1.8-7.7); BASOPHIL % 0.2 % (0.0-2.0); EOSINOPHIL % 0.1 % (0.0-4.0); HEMATOCRIT 28.2 % (35.0-46.0); LYMPH % 26.5 % (9.0-44.0); LYMPHOCYTE # 2.6 TH/MM3 (1.0-4.8); MEAN CELL VOLUME 81.1 FL (80.0-100.0); MEAN CORPUSCULAR HEMOGLOBIN 26.7 PG (27.0-34.0); MEAN CORPUSCULAR HGB CONC 32.9 % (32.0-36.0); MONO % 11.8 % (0.0-8.0); NEUT % 61.4 % (16.0-70.0); PLATELET COUNT 238 TH/MM3 (150-450); RED BLOOD COUNT 3.48 MIL/MM3 (4.00-5.30); RED CELL DISTRIBUTION WIDTH 19.1 % (11.6-17.2); WHITE BLOOD COUNT 9.9 TH/MM3 (4.0-11.0)
[2017-08-08 20:04] LABS: BACTERIA, URINE RARE /hpf; BLOOD, URINE MOD (NEG); GLUCOSE,URINE NEG (NEG); KETONE, URINE NEG (NEG); NITRITE,URINE NEG (NEG); PH, URINE 5.5 (5.0-8.5); SQUAMOUS EPITHELIAL CELL URINE <1 /hpf (0-5); URINE COLOR LIGHT-YELLOW (YELLW/STRAW)
[2017-08-08 20:05] LABS: COMMENT (UR) CATH-CULTURE IND; CULTURE IF INDICATED CATH CULTURE IND
[2017-08-08 20:07] LABS: APTT (PATIENT) 27.7 SEC (24.3-30.1); HEMO FLAGS AUTO DIFF; INTERNATIONAL NORMALIZED RATIO 0.9 RATIO; PROTHROMBIN TIME - PATIENT 9.6 SEC (9.8-11.6)
[2017-08-08] MEDS ORDERED: SODIUM CHLOR 0.9% 1000 ML INJ 1,000 ML IV SCH (20:19)
--- NOTE | 2017-08-08 20:19 | RADRPT ---
EXAM DATE/TIME: 08/08/2017 19:08 [facility] COMPARISON: No previous studies available for comparison. INDICATIONS : Fever. Mucus drainage. MEDICAL HISTORY : Osteosarcoma. SURGICAL HISTORY : Port. ENCOUNTER: Initial ACUITY: 4 - 6 days PAIN SCORE: 0/10 LOCATION: Bilateral chest FINDINGS: PA and lateral views of the chest demonstrate the lungs to be symmetrically aerated without evidence of mass, infiltrate or effusion. The cardiomediastinal contours are unremarkable. Osseous structure s are intact. Right-sided power port with the tip projecting over the central venous system. CONCLUSION: No acute cardiopulmonary process. Diaz Dewitt MD on August 08, 2017 at 20:17 Board Certified Radiologist. This report was verified electronically.
--- NOTE | 2017-08-08 20:22 | PD ---
HPI Chief Complaint: Fever Time Seen by Provider: 20:20 Travel History International Travel<30 days: No Contact w/Intl Traveler<30days: No Traveled to known affect area: No History of Present Illness HPI 37 YO F with PMH of osteosarcoma presents to the ED for evaluation of fever. Highest fever measured 101.8 at home. The patient endorses a nonproductive cough for the last few days. She denies sinus congestion, rhinorrhea, sore throat, shortness of breath, chest pain, abdominal pain, nausea, vomiting, dysuria, back pain. She was discharged from [facility] 2 days ago with a prescription for Levaquin. She states that she's been able to obtain this medication until today. She is not taken any doses of it at home. She is followed by Dr. Beavers at . [facility] Past Medical History Chemotherapy: Yes Implanted Vascular Access Dvce: Yes Immunizations Current: Yes ?: Not Past Surgical History Other Surgery: Yes (LEFT KNEE BIOPSY, RIGHT CHEST PORT) Social History Alcohol Use: No Tobacco Use: No Substance Use: No Allergies-Medications (Allergen,Severity, Reaction): Coded Allergies: No Known Allergies (Unverified Adverse Reaction, Unknown, 08/08/17) Reported Meds & Prescriptions Reported Meds & Active Scripts Active Reported Levofloxacin 750 Mg Tablet 750 Mg PO DAILY Prochlorperazine Maleate 10 Mg Tab 10 Mg PO Q6H PRN Zofran (Ondansetron HCl) 8 Mg Tab 8 Mg PO TID PRN Dexamethasone 4 Mg Tab 8 Mg PO DIRECTED Review of Systems Except as stated in HPI: all other systems reviewed are Neg Physical Exam Narrative GENERAL: Well-nourished, well-developed petite female in no acute distress. SKIN: Focused skin assessment warm/dry. HEAD: Normocephalic. EYES: No scleral icterus. No injection or drainage. NECK: Supple, trachea midline. No JVD or lymphadenopathy. CARDIOVASCULAR: Regular rate and rhythm without murmurs, gallops, or rubs. RESPIRATORY: Breath sounds equal bilaterally. No accessory muscle use. GASTROINTESTINAL: Abdomen soft, non-tender, nondistended. MUSCULOSKELETAL: No cyanosis, or edema. BACK: Nontender without obvious deformity. No CVA tenderness. Data Data Last Documented VS Vital Signs Date Time Temp Pulse Resp B/P (MAP) Pulse Ox O2 Delivery O2 Flow Rate FiO2 11/27/17 22:36 97 100 Room Air 08/08/17 21:51 99.6 08/08/17 20:59 20 Orders Orders Sepsis Workup Initiated (08/08/17 ) Electrocardiogram (08/08/17 18:59) Complete Blood Count With Diff (08/08/17 18:59) Comprehensive Metabolic Panel (08/08/17 18:59) Prothrombin Time / Inr (Pt) (08/08/17 18:59) Act Partial Throm Time (Ptt) (08/08/17 18:59) Lactic Acid Sepsis Protocol (08/08/17 18:59) Urinalysis - C+S If Indicated (08/08/17 18:59) Influenzae A/B Antigen (08/08/17 18:59) Blood Culture (08/08/17 18:59) Chest, Pa & Lat (08/08/17 18:59) Urine Culture (08/08/17 19:30) Iv Access Insert/Monitor (08/08/17 20:19) Ecg Monitoring (08/08/17 20:19) Oximetry (08/08/17 20:19) Sodium Chlor 0.9% 1000 Ml Inj (Ns 1000 M (08/08/17 20:19) Acetaminophen (Tylenol) (08/08/17 20:30) Levofloxacin 750 Mg Premix Inj (Levaquin (08/08/17 21:00) Ed Discharge Order (08/08/17 22:38) Labs Laboratory Tests Test 08/08/17 19:30 White Blood Count 9.9 TH/MM3 Red Blood Count 3.48 MIL/MM3 Hemoglobin 9.3 GM/DL Hematocrit 28.2 % Mean Corpuscular Volume 81.1 FL Mean Corpuscular Hemoglobin 26.7 PG Mean Corpuscular Hemoglobin Concent 32.9 % Red Cell Distribution Width 19.1 % Platelet Count 238 TH/MM3 Mean Platelet Volume 7.4 FL Neutrophils (%) (Auto) 61.4 % Lymphocytes (%) (Auto) 26.5 % Monocytes (%) (Auto) 11.8 % Eosinophils (%) (Auto) 0.1 % Basophils (%) (Auto) 0.2 % Neutrophils # (Auto) 6.1 TH/MM3 Lymphocytes # (Auto) 2.6 TH/MM3 Monocytes # (Auto) 1.2 TH/MM3 Eosinophils # (Auto) 0.0 TH/MM3 Basophils # (Auto) 0.0 TH/MM3 CBC Comment AUTO DIFF Differential Total Cells Counted 100 Neutrophils % (Manual) 55 % Band Neutrophils % 6 % Lymphocytes % 24 % Monocytes % 6 % Neutrophils # (Manual) 6.9 TH/MM3 Metamyelocytes 5 % Myelocytes 3 % Promyelocytes 1 % Differential Comment FINAL DIFF MANUAL Dohle Bodies PRESENT Platelet Estimate NORMAL Platelet Morphology Comment NORMAL Prothrombin Time 9.6 SEC Prothromb Time International Ratio 0.9 RATIO Activated Partial Thromboplast Time 27.7 SEC Urine Color LIGHT-YELLOW Urine Turbidity CLEAR Urine pH 5.5 Urine Specific [place] 1.008 Urine Protein NEG mg/dL Urine Glucose (UA) NEG mg/dL Urine Ketones NEG mg/dL Urine Occult Blood MOD Urine Nitrite NEG Urine Bilirubin NEG Urine Urobilinogen LESS THAN 2.0 MG/DL Urine Leukocyte Esterase NEG Urine RBC 2 /hpf Urine WBC 2 /hpf Urine Squamous Epithelial Cells <1 /hpf Urine Bacteria RARE /hpf Microscopic Urinalysis Comment CATH-CULTURE IND Blood Urea Nitrogen 11 MG/DL Creatinine 0.70 MG/DL Random Glucose 106 MG/DL Total Protein 8.2 GM/DL Albumin 3.1 GM/DL Calcium Level 8.4 MG/DL Alkaline Phosphatase 279 U/L Aspartate Amino Transf (AST/SGOT) 53 U/L Alanine Aminotransferase (ALT/SGPT) 157 U/L Total Bilirubin 0.1 MG/DL Sodium Level 132 MEQ/L Potassium Level 3.7 MEQ/L Chloride Level 99 MEQ/L Carbon Dioxide Level 25.5 MEQ/L Anion Gap 8 MEQ/L Estimat Glomerular Filtration Rate 95 ML/MIN Lactic Acid Level 1.3 mmol/L [facility] Medical Decision Making Medical Screen Exam Complete: Yes Emergency Medical Condition: Yes Differential Diagnosis Neutropenic fever versus UTI versus PNA versus other Narrative Course 37 YO F with PMH of osteosarcoma presents to the ED for evaluation of fever. Highest fever measured 101.8 at home. The patient endorses a nonproductive cough for the last few days. She denies sinus congestion, rhinorrhea, sore throat, shortness of breath, chest pain, abdominal pain, nausea, vomiting, dysuria, back pain. She was discharged from [facility] 2 days ago with a prescription for Levaquin. She states that she's been able to obtain this medication until today. She is not taken any doses of it at home. She is followed by Dr. Beavers at . History and physical assisted by the patient 's son who acted as stock worker. I reviewed the patient's record. Urine cultures obtained at last visit 08/04 grew pansensitive Escherichia coli. I suspect this is why the Levaquin was provided. Temp 100.4. Pulse 94 on arrival. Physical exam reveals a petite female in no acute distress. Chest CTAB. Abdomen soft and nontender. No CVA tenderness. IV was established. Patient was administered 650 mg Tylenol by mouth, 1 L normal saline IV. CBC: WBC 9.9. Hemoglobin 9.3. Hematocrit 28.2. INR 0.9. CMP: Sodium 132. Calcium 8.4. LFTs are elevated, similar to previous visit . Lactic acid: 1.3 UA: Moderate occult blood, rare bacteria. Culture indicated. EKG rate 137, sinus tachycardia. Normal axis. Normal intervals. No ST changes. Reviewed by Dr. Witt. CXR: No acute process per radiology read. I spoke with Dr. Soares, Dr. Beavers's partner. He treated the patient at her last visit to two days ago. I explained that the patient has an untreated UTI and has not been compliant with antibiotics. I proposed a plan of Tylenol, fluids, IV Levaquin. Dr. Soares is agreeable to this plan. He'd like to patient to follow up with next week as planned. On recheck heart rate 97 , temperature 99.6. Patient states that she is feeling better. She is instructed to begin taking the Levaquin tomorrow morning, follow-up with [facility] as planned. She was cautioned to return to the ED should her fever return. The patient and her son indicated understanding of instructions are agreeable with the care plan the patient is stable and discharged home. Diagnosis Primary Impression: Urinary tract infection Qualified Codes: N30.00 - Acute cystitis without hematuria Additional Impression: Fever Qualified Codes: R50.9 - Fever, unspecified Referrals: Oncologist Patient Instructions: General Instructions, Urinary Tract Infection in Women ( ED) Additional Instructions: Rest, hydrate. Take Levaquin as prescribed, beginning tomorrow. Follow-up with your doctors at as previously planned. Return to the ED for worsening symptoms or any urgent or emergent medical condition. Disposition: DISCHARGE HOME Condition: Stable Berna Samuel Aug 08, 2017 20:22
[2017-08-08 20:24] LABS: ANION GAP 8 MEQ/L (5-15); AST (GOT) 53 U/L (15-37); BICARBONATE 25.5 MEQ/L (21.0-32.0); BLOOD UREA NITROGEN 11 MG/DL (7-18); CHLORIDE 99 MEQ/L (98-107); GLOMERULAR FILTRATION RATE 95 ML/MIN (>89); POTASSIUM 3.7 MEQ/L (3.5-5.1); SODIUM (NA) 132 MEQ/L (136-145)
[2017-08-08 20:25] LABS: ALT (GPT) 157 U/L (10-53)
[2017-08-08 20:27] LABS: ALKALINE PHOSPHATASE 279 U/L (45-117); TOTAL BILIRUBIN ADULT 0.1 MG/DL (0.2-1.0)
[2017-08-08] MEDS ORDERED: ACETAMINOPHEN 325 MG TAB PO ONE (20:30)
[2017-08-08 20:49] LABS: BANDS 6 % (0-6); METAMYELOCYTES 5 % (0-1); MYELOCYTES 3 % (0-0); NEUTROPHIL # MANUAL DIFF 6.9 TH/MM3 (1.8-7.7); POLYS (SEG NEUTROPHILS) 55 % (16-70); PROMYELOCYTES 1 % (0-0); WBC DIFF SAMPLE 100
[2017-08-08 20:50] LABS: DOHLE BODIES PRESENT (NONE SEEN); PLATELET ESTIMATE SMEAR NORMAL (NORMAL); PLATELET MORPHOLOGY NORMAL (NORMAL); SCAN/DIFF FINAL DIFF MANUAL
[2017-08-08 20:59] VITALS: PULSE 131; RESP 20; O2SAT 100
[2017-08-08] MEDS ORDERED: LEVOFLOXACIN 750 MG PREMIX INJ 150 ML IV ONE (21:00)
[2017-08-08] MEDS ORDERED: LEVO750T3 PO (21:13)
[2017-08-08 21:51] VITALS: BP 117/83; PULSE 102; TEMP 99.6; O2SAT 100
[2017-08-08 22:36] VITALS: PULSE 97; O2SAT 100
--- NOTE | 2017-08-09 15:14 | EKG ---
Date Performed: 08/08/2017 Time Performed: 20:56:39 PTAGE: 37 years EKG: SINUS TACHYCARDIA ABNORMAL RHYTHM ECG NO PREVIOUS TRACING DOCTOR: Agatha Mcclure Interpretating Date/Time 08/09/2017 15:12:12
== END 2017-08-08 22:59 | disposition home or self-care (01) ==
LOC: NEPC 18:49
DX: N39.0 Urinary tract infection, site not specified (principal); R00.0 Tachycardia, unspecified; R05 Cough; C41.9 Malignant neoplasm of bone and articular cartilage, unspecified; R94.31 Abnormal electrocardiogram [ECG] [EKG]; Z79.899 Other long term (current) drug therapy
CPT/HCPCS: 71020; 80053; 81001; 83605; 85007; 85027; 85610; 85730; 87040; 87086; 87804; 93005; 96361; 96365; 99285; J1956; J7030